=== PATIENT | male | born 1965 | race Caucasian/White ===

== ENCOUNTER 2021-08-13 05:22 | Day surgery (SDC) | payer MEDICARE ==
[~2021-08-13] VITALS: Ht 182.9 cm; Wt 104.6 kg
--- NOTE | 2021-08-13 05:30 | NUR ---
Patient admitted ot [facility] bay #8 via ambulation. Patient has brought a pair of crutches, however is using a steady gait. is present. Height and weight obtained. Medications and HX reviewed. Procedure verified and consent signed. Patient verbalized understanding of procedure. Vitals obatined and physical assessment completed. Patient voided prior to changing and was provided a warm blanket. IV started in L hand on first attempt with 20G. IVF scanned and are infusing without difficulty. PO medications administered. Call cameron is at bedside. Side rails x2.
[2021-08-13] MEDS ORDERED: NEURONTIN300 MG/CAP PO (05:41)
[2021-08-13] MEDS ORDERED: PAXIL 20MG20 MG PO (05:42)
[2021-08-13] MEDS ORDERED: ZESTRIL 10MG10 MG PO (05:42)
[2021-08-13 06:08] VITALS: BP 118/80; PULSE 71; TEMP 98
[2021-08-13] MEDS ORDERED: NORCO 325 MG-7.1 TAB PO (06:15)
--- NOTE | 2021-08-13 06:17 | NUR ---
Patient was taken to recieve block by Anasthesia.
[2021-08-13 08:00] VITALS: BP 126/85; PULSE 70; TEMP 96.6
--- NOTE | 2021-08-13 08:00 | NUR ---
Patient arrives on cart from PACU after recieving a general. Patient is alert and oriented x3. Report obtained over the phone. Patient requested hot coffee and a warm muffin to eat. Vitals obtained. Pop pulse is present. L limb is elevated. Ice applied. Patient denies pain. is present. Side rails x2. Call cameron is at bedside.
[2021-08-13 08:15] VITALS: BP 122/80; PULSE 85
--- NOTE | 2021-08-13 08:15 | NUR ---
Patient is tolerating his muffin and coffee well. Vitals obatined.
[2021-08-13 08:30] VITALS: BP 118/82; PULSE 69
--- NOTE | 2021-08-13 08:30 | NUR ---
Patient requested another hot cup of coffee. Vitals obtained.
[2021-08-13 08:45] VITALS: BP 117/71; PULSE 82
--- NOTE | 2021-08-13 08:45 | NUR ---
Patient was assisted to the edge of the bed and assisted with standing. L leg remains NWB. Patient is using his crutches. He is mildly unsteady, however is focused on getting himself to the bathroom. Patient was able to successfully void and then return back to bed. IV was discontinued. Catheter tip intact. Pressure dressing applied and no swelling or redness noted. Discharge instructions and educational material was reviewed. Patient and his verbalized understanding of material, and the patient signed the related paperwork. Patient denied needing any help changing to his personal clothes.
--- NOTE | 2021-08-13 09:15 | NUR ---
Patient was escorted out to the patient entrence by JIMENA Robison. His has the discharge packet in the white patient belongings bag, along with personal belongings. Patient has his cruthes and was assisted into the front seat of their truck. His is present to drive and the patient was transferred into her care at this time. Both denied having any further questions or concerns.
== END 2021-08-13 09:30 | disposition home or self-care (01) ==
LOC: SDCO 05:22
DX: M24.272 Disorder of ligament, left ankle (principal); Z79.899 Other long term (current) drug therapy; I10 Essential (primary) hypertension; F17.210 Nicotine dependence, cigarettes, uncomplicated; G89.29 Other chronic pain; M54.9 Dorsalgia, unspecified; F31.9 Bipolar disorder, unspecified
CPT/HCPCS: C1713; J0690; J1100; J1885; J2250; J2405; J2704; J2795; J3010; J7120